=== PATIENT | male | born 1965 | race Caucasian/White ===

== ENCOUNTER → 2017-01-09 | Outpatient (REF) | LOC: WSOH 17:00 | DX: Z02.89 Encounter for other administrative examinations (principal) ==

== ENCOUNTER → 2017-02-18 | Outpatient (CLI) | payer OTHER ==
[2017-02-18 17:06] LABS: BASO % 0.6 % (0.0-2.0); EOS # 0.2 (0.0-0.7); EOS % 3.4 % (0-4.0); GRAN % 59.8 % (42.2-75.2); HEMATOCRIT 45.4 % (42.0-52.0); HEMOGLOBIN 14.8 g/dl (13.5-18.0); LYMPH # 1.3 (1.2-3.4); LYMPH % 26.5 % (20.0-51.0); MEAN CELL VOLUME 85 fl (80.0-100.0); MEAN CORPUSCULAR HEMOGLOBIN 28 pg (27.0-31.0); MEAN CORPUSCULAR HGB CONC 33 g/dl (33.0-37.0); MEAN PLATELET VOLUME 10.7 fl (7.4-10.4); MONO # 0.5 (0.1-0.6); MONO % 9.5 % (1.7-9.3); PLATELET COUNT 223 K/mm3 (130-400); RED BLOOD COUNT 5.34 M/mm3 (4.20-5.60)
[2017-02-18 17:09] LABS: ADJUSTED CALCIUM 9.1 mg/dL (8.4-10.2); ALBUMIN 4.4 gm/dL (3.5-5.0); BILIRUBIN,TOTAL 0.6 mg/dL (0.0-1.0); CALCIUM 9.4 mg/dL (8.4-10.2); CREATININE, serum 1.01 mg/dL (0.66-1.25); POTASSIUM 4.5 mmol/L (3.4-5.0); TOTAL PROTEIN 7.3 gm/dL (6.4-8.2)
== END ==
LOC: COL.LAB 15:10
PROVIDERS: Family Medicine
DX: E78.5 Hyperlipidemia, unspecified (principal)

== ENCOUNTER → 2018-04-20 | Outpatient (CLI) | payer OTHER ==
[2018-04-20 16:53] LABS: CHOLESTEROL RISK RATIO 5.5
[2018-04-20 18:54] LABS: PSA-TOTAL 1.16 ng/mL (0-4)
== END ==
LOC: ZCOL.LAB 16:24
PROVIDERS: Family Medicine
DX: Z12.5 Encounter for screening for malignant neoplasm of prostate (principal); E78.5 Hyperlipidemia, unspecified
CPT/HCPCS: G0103

== ENCOUNTER 2018-06-01 07:00 | Day surgery (SDC) | payer OTHER ==
[~2018-06-01] VITALS: Ht 182.9 cm; Wt 91.9 kg
[2018-06-01 07:32] VITALS: BP 124/80; PULSE 90; TEMP 98.4
[2018-06-01] MEDS ORDERED: MULTI VITAMINS1 TAB PO (07:41)
[2018-06-01] MEDS ORDERED: VITAMINC1000TA PO (07:41)
[2018-06-01] MEDS ORDERED: MASON NATURAL2000 IU PO (07:42)
[2018-06-01] MEDS ORDERED: VITAMIN B-6100 MG PO (07:43)
[2018-06-01] MEDS ORDERED: MASON NATURAL1200 MG PO (07:44)
--- NOTE | 2018-06-01 07:45 | NUR ---
TO RM AT 0710- CALL LIGHT IN REACH AT BEDSIDE.
[2018-06-01 09:05] VITALS: BP 110/65; PULSE 69; TEMP 97.7
--- NOTE | 2018-06-01 09:05 | NUR ---
Pt to GI bay 1 via cart from [employer]. Pt drowsy, but awake. Pt ambulates to recliner with stand by assistance. Warm blanket provided. in room. Pt denies nausea or pain. Muffin and juice given per pt request. Will continue to monitor. Call light within reach.
[2018-06-01 09:20] VITALS: BP 114/58; PULSE 83
--- NOTE | 2018-06-01 09:20 | NUR ---
Pt tolerating food and fluids without difficulties. Will continue to monitor. Call light within reach.
[2018-06-01 09:35] VITALS: BP 98/69; PULSE 64
--- NOTE | 2018-06-01 09:35 | NUR ---
Pt continues to rest. into consult with pt and .
[2018-06-01 09:45] VITALS: BP 104/66; PULSE 70
--- NOTE | 2018-06-01 09:45 | NUR ---
Discharge instructions reviewed with pt by Flakita PETERSON. Pt voices understanding. IV site discontinued with all parts intact. Pt up to dress. Call light within reach.
--- NOTE | 2018-06-01 09:55 | NUR ---
Pt escorted to private car via wheel chair. Pt accompanied home by his .
== END 2018-06-01 09:55 | disposition home or self-care (01) ==
LOC: SDCO 07:00
DX: Z12.11 Encounter for screening for malignant neoplasm of colon (principal); Z80.0 Family history of malignant neoplasm of digestive organs; D12.5 Benign neoplasm of sigmoid colon; K64.0 First degree hemorrhoids
CPT/HCPCS: OP; J2250; J2405; J3010; J7030

== ENCOUNTER 2018-12-18 20:32 | Emergency (ER) | payer OTHER ==
[~2018-12-18] VITALS: Ht 182.9 cm; Wt 90.9 kg
[~2018-12-18 20:32] MED LIST: MASON NATURAL1200 MG PO; MASON NATURAL2000 IU PO; MULTI VITAMINS1 TAB PO; VITAMIN B-6100 MG PO; VITAMINC1000TA PO
[2018-12-18 20:36] VITALS: TEMP 99.3
[2018-12-18] MEDS ORDERED: PREDNISONE20 MG PO (22:17)
[2018-12-18 22:24] VITALS: BP 120/80; PULSE 84
== END 2018-12-18 22:24 | disposition home or self-care (01) ==
LOC: COL.ER 20:32
DX: T63.441A Toxic effect of venom of bees, accidental (unintentional), initial encounter (principal)
CPT/HCPCS: J7030; J7512

== ENCOUNTER → 2019-05-10 | Outpatient (CLI) | payer OTHER ==
[~2019-05-10] MED LIST changes: +PREDNISONE20 MG PO
== END ==
LOC: COL.RAD 10:52
DX: R05 Cough (principal)

== ENCOUNTER 2019-11-12 17:21 | Emergency (ER) | payer OTHER ==
[~2019-11-12] VITALS: Ht 182.9 cm; Wt 90.9 kg
[2019-11-12 17:31] VITALS: TEMP 97.8
[2019-11-12] MEDS ORDERED: PREDNISONE20 MG PO ×2 (17:45)
[2019-11-12 18:43] VITALS: BP 128/74; PULSE 68
== END 2019-11-12 18:43 | disposition home or self-care (01) ==
LOC: COL.ER 17:21
DX: T63.441A Toxic effect of venom of bees, accidental (unintentional), initial encounter (principal); Z79.52 Long term (current) use of systemic steroids
CPT/HCPCS: J1200; J2930; J7040

== ENCOUNTER → 2019-12-12 | Outpatient (CLI) | payer OTHER ==
[2019-12-12 07:55] LABS: BASO % 0.4 % (0.0-2.0); EOS # 0.2 (0.0-0.7); EOS % 3.5 % (0-4.0); GRAN % 65.3 % (42.2-75.2); HEMATOCRIT 45.4 % (42.0-52.0); HEMOGLOBIN 14.8 g/dl (13.5-18.0); LYMPH % 21.7 % (20.0-51.0); MEAN CELL VOLUME 84 fl (80.0-100.0); MEAN CORPUSCULAR HEMOGLOBIN 28 pg (27.0-31.0); MEAN CORPUSCULAR HGB CONC 33 g/dl (33.0-37.0); MEAN PLATELET VOLUME 9.6 fl (7.4-10.4); MONO # 0.4 (0.1-0.6); MONO % 8.9 % (1.7-9.3); PLATELET COUNT 210 K/mm3 (130-400); RED BLOOD COUNT 5.39 M/mm3 (4.20-5.60); REDCELL DISTRIBUTION WIDTH-CV 13.1 % (11.5-14.5)
[2019-12-12 08:09] LABS: ALBUMIN 4.4 gm/dL (3.5-5.0); BILIRUBIN,TOTAL 0.5 mg/dL (0.0-1.0); CALCIUM 9.1 mg/dL (8.4-10.2); CHOLESTEROL RISK RATIO 4.6; CREATININE, serum 1.03 (0.66-1.25); TOTAL PROTEIN 7.3 gm/dL (6.4-8.2)
[2019-12-12 08:10] LABS: MUCOUS Present /lpf; PH 5 (5-8); SQUAMOUS EPITHELIAL None Seen /hpf; URINE APPEARANCE Clear; URINE BACTERIA None Seen /hpf; URINE BILIRUBIN Negative (NEGATIVE); URINE BLOOD Negative (NEGATIVE); URINE COLOR Yellow; URINE GLUCOSE Negative (NEGATIVE); URINE KETONE Negative (NEGATIVE); URINE LEUKOCYTE ESTERASE Negative (NEGATIVE); URINE NITRATE Negative (NEGATIVE); URINE PROTEIN(semi-quant) Negative (NEGATIVE); URINE RBC 0-2 /hpf; URINE UROBILINOGEN Negative (NEGATIVE)
[2019-12-12 08:37] LABS: THYROID STIMULATING HORMONE 3.17 uIU/mL (0.465-4.680)
[2019-12-12 13:50] LABS: COLLECTION METHOD CLEAN CATCH
== END ==
LOC: COL.LAB 07:28
PROVIDERS: Internal Medicine
DX: Z00.00 Encounter for general adult medical examination without abnormal findings (principal); Z13.220 Encounter for screening for lipoid disorders; Z13.29 Encounter for screening for other suspected endocrine disorder

== ENCOUNTER → 2020-12-13 | Outpatient (CLI) | payer OTHER ==
[2020-12-13 10:07] LABS: BASO % 0.4 % (0.0-2.0); EOS # 0.1 (0.0-0.7); EOS % 1.8 % (0-4.0); GRAN # 3.6 (1.4-6.5); HEMATOCRIT 47.1 % (42.0-52.0); LYMPH # 1.3 (1.2-3.4); LYMPH % 22.7 % (20.0-51.0); MEAN CELL VOLUME 86 fl (80.0-100.0); MEAN CORPUSCULAR HEMOGLOBIN 27 pg (27.0-31.0); MEAN CORPUSCULAR HGB CONC 32 g/dl (33.0-37.0); MEAN PLATELET VOLUME 10.2 fl (7.4-10.4); MONO # 0.5 (0.1-0.6); MONO % 8.7 % (1.7-9.3); PLATELET COUNT 244 K/mm3 (130-400); RED BLOOD COUNT 5.51 M/mm3 (4.20-5.60); REDCELL DISTRIBUTION WIDTH-CV 12.8 % (11.5-14.5)
[2020-12-13 10:18] LABS: ALBUMIN 4.6 gm/dL (3.5-5.0); BILIRUBIN,TOTAL 0.4 mg/dL (0.0-1.0); CALCIUM 9.2 mg/dL (8.4-10.2); CREATININE, serum 1.05 (0.66-1.25); POTASSIUM 4.4 mmol/L (3.4-5.0); TOTAL PROTEIN 7.6 gm/dL (6.4-8.2)
[2020-12-13 10:20] LABS: COLLECTION METHOD CLEAN CATCH
[2020-12-13 10:26] LABS: MUCOUS Present /lpf; PH 6 (5-8); SQUAMOUS EPITHELIAL 0-2 /hpf; URINE APPEARANCE Hazy; URINE BACTERIA Rare /hpf; URINE BILIRUBIN Negative (NEGATIVE); URINE BLOOD Negative (NEGATIVE); URINE COLOR Yellow; URINE GLUCOSE Negative (NEGATIVE); URINE KETONE Negative (NEGATIVE); URINE LEUKOCYTE ESTERASE Negative (NEGATIVE); URINE NITRATE Negative (NEGATIVE); URINE PROTEIN(semi-quant) Negative (NEGATIVE); URINE RBC 0-2 /hpf; URINE UROBILINOGEN Negative (NEGATIVE)
[2020-12-13 10:57] LABS: THYROID STIMULATING HORMONE 2.475 uIU/mL (0.350-4.940)
[2020-12-14 09:51] LABS: CHOLESTEROL RISK RATIO 5.6
== END ==
LOC: COL.LAB 09:33
DX: Z00.00 Encounter for general adult medical examination without abnormal findings (principal); Z13.29 Encounter for screening for other suspected endocrine disorder; Z13.220 Encounter for screening for lipoid disorders

== ENCOUNTER → 2021-07-04 | Outpatient (CLI) | payer OTHER ==
[2021-07-04 09:28] LABS: CHOLESTEROL RISK RATIO 4.8
== END ==
LOC: COL.LAB 08:54
PROVIDERS: Internal Medicine
DX: E78.5 Hyperlipidemia, unspecified (principal)

== ENCOUNTER 2021-08-06 09:20 | Day surgery (SDC) | payer OTHER ==
[~2021-08-06] VITALS: Ht 182.9 cm; Wt 97.0 kg
--- NOTE | 2021-08-06 09:40 | NUR ---
55 Year old natural male admitted to endo by #3 via ambulation, no use of assistive devices. is present. Height and weight obtained. Vitals obtained. Medications and allergies reviewed. Procedure verified and consent signed. Pt verbalized understanding the procedure. Pt changed into a clean gown. Warm blanket provided. Non-slip socks are on. IV started in R wrist on second attempt with 20G. IVF scanned and are infusing without difficulty. Lungs CTA. Heart RRR, S1 and S2 noted. Bowel sounds present. Call velásquez is within reach at side table. Pt denied having any questions.
[2021-08-06] MEDS ORDERED: VITAMIN C500 MG PO (09:48)
[2021-08-06] MEDS ORDERED: ZYRTEC ALLERGY10 MG PO (09:49)
[2021-08-06] MEDS ORDERED: EPA FISH OIL1000 MG PO (09:50)
[2021-08-06 09:54] VITALS: BP 114/84; PULSE 68; TEMP 97.9
[2021-08-06 12:10] VITALS: BP 111/72; PULSE 68; TEMP 97.5
[2021-08-06 12:25] VITALS: BP 108/70; PULSE 57
[2021-08-06 12:40] VITALS: BP 100/71; PULSE 61
--- NOTE | 2021-08-06 12:50 | NUR ---
1210 PT RETURNED TO BAY 3 VIA CART. TRANSFERED TO CHAIR WITH 2 RN ASSIST. MONITORS ATTACHED, INTERVALS AND ALARMS SET. PT ALERT AND ORIENTED X3. DENIES NAUSEA OR PAIN WARM BLANKET, ORANGE JUICE AND MUFFIN PROVIDED. CALL LIGHT IN REACH. 1225 PT TOLERATING FOOD AND DRINK WELL. VITAL SIGNS STABLE. 1240 DR. BORJA IN TO SPEAK WITH PT. REVIEWED DISCHAGE INSTRUCTIONS AND EDUCATION MATERIAL. PT AND VERBALIZE UNDERSTANDING AND DENIES QUESTIONS. IV REMOVED WITHOUT COMPLICATION. PT ALLOWED TO DRESS. 1250 PT TRANSFERED VIA WHEELCHAIR TO PERSONAL VEHICLE TO BE DRIVEN HOME BY .
== END 2021-08-06 12:50 | disposition home or self-care (01) ==
LOC: SDCO 09:20
DX: Z12.11 Encounter for screening for malignant neoplasm of colon (principal); K64.0 First degree hemorrhoids; K64.4 Residual hemorrhoidal skin tags; Z86.010 Personal history of colon polyps; Z80.0 Family history of malignant neoplasm of digestive organs
CPT/HCPCS: J2704; J7120

== ENCOUNTER 2021-08-25 21:14 | Emergency (ER) | payer OTHER ==
[~2021-08-25] VITALS: Ht 182.9 cm; Wt 95.0 kg
[~2021-08-25 21:14] MED LIST changes: +EPA FISH OIL1000 MG PO; +VITAMIN C500 MG PO; +ZYRTEC ALLERGY10 MG PO
[2021-08-25 21:21] VITALS: BP 144/88; TEMP 98
[2021-08-25 22:10] VITALS: PULSE 68
== END 2021-08-25 22:10 | disposition home or self-care (01) ==
LOC: COL.ER 21:14
DX: T78.3XXA Angioneurotic edema, initial encounter (principal)
CPT/HCPCS: J1100; J1200

== ENCOUNTER → 2021-12-18 | Outpatient (CLI) | payer OTHER ==
[2021-12-18 08:55] LABS: BASO % 0.5 % (0.0-2.0); EOS # 0.1 K/mm3 (0.0-0.7); EOS % 2.5 % (0.0-4.0); GRAN # 3.6 K/mm3 (1.4-6.5); GRAN % 64.7 % (42.2-75.2); HEMATOCRIT 45.7 % (42.0-52.0); HEMOGLOBIN 14.5 g/dl (13.5-18.0); LYMPH # 1.3 K/mm3 (1.2-3.4); LYMPH % 23.5 % (20.0-51.0); MEAN CELL VOLUME 80 fl (80.0-100.0); MEAN CORPUSCULAR HEMOGLOBIN 25 pg (27-31); MEAN CORPUSCULAR HGB CONC 32 g/dl (33.0-37.0); MEAN PLATELET VOLUME 10.1 fl (7.4-10.4); MONO # 0.5 K/mm3 (0.1-0.6); MONO % 8.6 % (1.7-9.3); PLATELET COUNT 243 K/mm3 (130-400); RED BLOOD COUNT 5.71 M/mm3 (4.20-5.60)
[2021-12-18 09:06] LABS: MUCOUS Present (NOT PRESENT); SQUAMOUS EPITHELIAL None Seen /hpf (0-10); URINE BACTERIA None Seen /hpf (NONE SEEN); URINE RBC 0-2 /hpf (0-2)
[2021-12-18 09:07] LABS: PH 5.5 (5.0-8.5); URINE APPEARANCE Clear (CLEAR/HAZY); URINE COLOR Yellow (YELLOW); URINE GLUCOSE Negative (NEGATIVE); URINE KETONE Negative (NEGATIVE); URINE PROTEIN(semi-quant) Negative (NEGATIVE)
[2021-12-18 09:08] LABS: URINE BLOOD Negative (NEGATIVE); URINE NITRATE Negative (NEGATIVE); URINE UROBILINOGEN 0.2 E.U/dL (0.2-1.0)
[2021-12-18 09:09] LABS: COLLECTION METHOD CLEAN CATCH
[2021-12-18 09:10] LABS: BILIRUBIN,TOTAL 0.5 mg/dL (0.2-1.2); CALCIUM 9.3 mg/dL (8.4-10.2); CREATININE, serum 1.09 mg/dL (0.72-1.25); POTASSIUM 4.7 mmol/L (3.5-4.5); TOTAL PROTEIN 7.1 gm/dL (6.2-8.1)
[2021-12-18 09:30] LABS: THYROID STIMULATING HORMONE 2.159 uIU/mL (0.350-4.940)
== END ==
LOC: COL.LAB 08:33
PROVIDERS: Internal Medicine
DX: Z00.00 Encounter for general adult medical examination without abnormal findings (principal); Z13.29 Encounter for screening for other suspected endocrine disorder; Z13.220 Encounter for screening for lipoid disorders; Z12.5 Encounter for screening for malignant neoplasm of prostate

== ENCOUNTER 2023-07-29 15:15 | Outpatient (RCR) | payer OTHER | END 2023-08-02 | disposition home or self-care (01) | LOC: PT.GENESIS | DX: M54.17 Radiculopathy, lumbosacral region (principal) ==

== ENCOUNTER → 2023-08-31 | Outpatient (CLI) | payer OTHER ==
[~2023-08-31] MED LIST changes: +BACTRIM DS 8001 TAB PO; +SINGULAIR 110 MG/TAB PO; +ZYRTEC 10MG10 MG PO
== END ==
LOC: COL.RAD 10:06
DX: M51.16 Intervertebral disc disorders with radiculopathy, lumbar region (principal); M48.061 Spinal stenosis, lumbar region without neurogenic claudication; M51.15 Intervertebral disc disorders with radiculopathy, thoracolumbar region

== ENCOUNTER → 2023-09-01 | Outpatient (CLI) | payer OTHER ==
[~2023-09-01] VITALS: Ht 172.7 cm; Wt 93.6 kg
[~2023-09-01] MED LIST changes: +Triamcinolone 40 MG/ML 1 ML VIAL IJ SCH
[2023-09-01 11:01] VITALS: BP 129/75; PULSE 71; TEMP 97.8
[2023-09-01 12:00] VITALS: BP 128/75; PULSE 74
== END ==
LOC: COL.RAD 10:02
DX: M51.17 Intervertebral disc disorders with radiculopathy, lumbosacral region (principal)
CPT/HCPCS: J0665; J3301

== ENCOUNTER → 2023-09-17 | Outpatient (CLI) | payer OTHER ==
[~2023-09-17] MED LIST changes: +Iohexol 180 - 10 ML VIAL IV ONE; +Triamcinolone 40 MG/ML 1 ML VIAL IJ ONE; -Triamcinolone 40 MG/ML 1 ML VIAL IJ SCH
== END ==
LOC: COL.RAD 10:30
DX: M51.27 Other intervertebral disc displacement, lumbosacral region (principal)
CPT/HCPCS: J0665; J3301; Q9965

== ENCOUNTER → 2023-12-09 | Outpatient (CLI) | payer OTHER ==
[~2023-12-09] MED LIST changes: -Iohexol 180 - 10 ML VIAL IV ONE; -Triamcinolone 40 MG/ML 1 ML VIAL IJ ONE
[2023-12-09 07:26] LABS: COLLECTION METHOD CLEAN CATCH
[2023-12-09 07:36] LABS: BASO % 0.3 % (0.0-2.0); EOS # 0.2 K/mm3 (0.0-0.7); EOS % 3.1 % (0.0-4.0); GRAN # 3.8 K/mm3 (1.4-6.5); GRAN % 65.9 % (42.2-75.2); HEMATOCRIT 46.9 % (42.0-52.0); HEMOGLOBIN 15.7 g/dl (13.5-18.0); LYMPH # 1.2 K/mm3 (1.2-3.4); LYMPH % 21.2 % (20.0-51.0); MEAN CELL VOLUME 86 fl (80.0-100.0); MEAN CORPUSCULAR HEMOGLOBIN 29 pg (27-31); MEAN CORPUSCULAR HGB CONC 34 g/dl (33.0-37.0); MEAN PLATELET VOLUME 10.2 fl (7.4-10.4); MONO # 0.5 K/mm3 (0.1-0.6); MONO % 9.2 % (1.7-9.3); PLATELET COUNT 191 K/mm3 (130-400); RED BLOOD COUNT 5.46 M/mm3 (4.20-5.60); REDCELL DISTRIBUTION WIDTH-CV 12.7 % (11.5-14.5)
[2023-12-09 07:49] LABS: ALBUMIN 3.9 g/dL (3.5-5.0); BILIRUBIN,TOTAL 0.5 mg/dL (0.2-1.2); CALCIUM 9.2 mg/dL (8.4-10.2); CHOLESTEROL RISK RATIO 5.2; CREATININE, serum 1.05 mg/dL (0.72-1.25); POTASSIUM 4.3 mEq/L (3.5-4.5); TOTAL PROTEIN 6.6 g/dl (6.2-8.1); URINE APPEARANCE Clear (CLEAR/HAZY); URINE BLOOD NEGATIVE (NEGATIVE); URINE COLOR Yellow (YELLOW)
[2023-12-09 07:50] LABS: PH 5.5 (5.0-8.5); URINE GLUCOSE NEGATIVE (NEGATIVE); URINE KETONE NEGATIVE (NEGATIVE); URINE NITRATE NEGATIVE (NEGATIVE); URINE PROTEIN(semi-quant) NEGATIVE (BEGATIVE); URINE UROBILINOGEN 0.2 E.U/dL (0.2-1.0)
[2023-12-09 08:08] LABS: THYROID STIMULATING HORMONE 2.42 uIU/mL (0.350-4.940)
== END ==
LOC: COL.LAB 05:47
PROVIDERS: Internal Medicine
DX: Z00.00 Encounter for general adult medical examination without abnormal findings (principal); Z13.29 Encounter for screening for other suspected endocrine disorder; Z13.220 Encounter for screening for lipoid disorders; Z12.5 Encounter for screening for malignant neoplasm of prostate